=== PATIENT | female | born 1970 | race African-American/Black ===

== ENCOUNTER 2016-08-11 08:12 | Emergency (ER) | payer OTHER ==
[~2016-08-11] VITALS: Ht 154.9 cm; Wt 81.8 kg
[~2016-08-11 08:12] MED LIST: PERCOCET 5/31 TABLET PO
[2016-08-11] MEDS ORDERED: FLEXERIL10 MG PO (08:55)
[2016-08-11] MEDS ORDERED: MEDROL DOSEPAK4 MG PO (08:55)
[2016-08-11 09:19] VITALS: BP 131/76
== END 2016-08-11 09:20 | disposition home or self-care (01) ==
LOC: EME 08:12
DX: M54.16 Radiculopathy, lumbar region (principal); M79.604 Pain in right leg; G89.29 Other chronic pain; E03.9 Hypothyroidism, unspecified; F17.200 Nicotine dependence, unspecified, uncomplicated
CPT/HCPCS: 99281; 99283

== ENCOUNTER 2016-11-16 10:26 | Emergency (ER) | payer OTHER ==
[~2016-11-16] VITALS: Ht 160 cm; Wt 92.5 kg
[~2016-11-16 10:26] MED LIST changes: +FLEXERIL10 MG PO; +MEDROL DOSEPAK4 MG PO
[2016-11-16] MEDS ORDERED: ZITHROMAX500 MG PO (12:30)
[2016-11-16] MEDS ORDERED: PREDNISONE20 MG PO (12:30)
[2016-11-16 12:46] VITALS: BP 145/68
== END 2016-11-16 12:47 | disposition home or self-care (01) ==
LOC: EME 10:26
DX: J20.9 Acute bronchitis, unspecified (principal); F17.200 Nicotine dependence, unspecified, uncomplicated
CPT/HCPCS: 71020; 94640; 99281; 99284; J7512

== ENCOUNTER 2017-10-17 19:57 | Emergency (ER) | payer OTHER ==
[~2017-10-17] VITALS: Ht 154.9 cm; Wt 89.3 kg
[~2017-10-17 19:57] MED LIST changes: +PREDNISONE20 MG PO; +ZITHROMAX500 MG PO
[2017-10-17 21:24] LABS: HEMATOCRIT 41.5 % (36.0-46.0); MCH 28.1 PG (29.0-34.0); MCHC 33.7 G/DL (30.0-36.0); MCV 83.3 FL (83-99); RBC DIS.WIDTH-CV 13.9 % (11.8-14.6); RBC DIS.WIDTH-SD 42.7 % (39-53); RED BLOOD COUNT 4.98 M/uL (3.80-5.20); WHITE BLOOD COUNT 12.5 K/uL (4.1-10.2)
[2017-10-17 21:33] LABS: CHLORIDE 106 mEq/L (99-109); POTASSIUM 3.6 mEq/L (3.7-5.4); SODIUM 140 mEq/L (136-147)
[2017-10-17 21:35] LABS: GLUCOSE 86 mg/dL (70-99)
[2017-10-17 21:39] LABS: GFR ESTIMATE (CALCULATED) > 59 mL/min/
[2017-10-17 21:40] LABS: UREA NITROGEN (BUN) 11 mg/dL (9-23)
[2017-10-17] MEDS ORDERED: TESSALON PERLE100 MG PO (21:58)
[2017-10-17] MEDS ORDERED: PREDNISONE10 M1 PO (21:58)
[2017-10-17] MEDS ORDERED: ZITHROMAX Z-PA250 MG PO (21:58)
[2017-10-17 22:05] LABS: PLAT.SUFFICIENCY ADEQUATE; PLATELET COUNT 364 K/uL (156-360)
[2017-10-17 22:18] VITALS: BP 160/98
== END 2017-10-17 22:19 | disposition home or self-care (01) ==
LOC: EME 19:57
PROVIDERS: Physician Assistant
DX: J06.9 Acute upper respiratory infection, unspecified (principal); I10 Essential (primary) hypertension; G89.29 Other chronic pain; M54.9 Dorsalgia, unspecified; F32.9 Major depressive disorder, single episode, unspecified; F31.9 Bipolar disorder, unspecified; F17.200 Nicotine dependence, unspecified, uncomplicated; Z91.018 Allergy to other foods
CPT/HCPCS: 71046; 80048; 85027; 99281; 99284

== ENCOUNTER 2017-11-08 17:58 | Emergency (ER) | payer OTHER ==
[~2017-11-08] VITALS: Ht 160 cm; Wt 89.6 kg
[~2017-11-08 17:58] MED LIST changes: +PREDNISONE10 M1 PO; +TESSALON PERLE100 MG PO; +ZITHROMAX Z-PA250 MG PO
[2017-11-08 18:51] LABS: APPEARANCE CLEAR ((CLEAR)); BILIRUBIN NEGATIVE; BLOOD MODERATE; COLOR AMBER ((YELLOW)); GLUCOSE (STRIP) NEGATIVE; KETONES NEGATIVE; LEUKOCYTES NEGATIVE; NITRITE NEGATIVE; PROTEIN (STRIP) NEGATIVE; SPECIFIC GRAVITY 1.018 (1.000-1.030)
[2017-11-08 18:54] LABS: BACTERIA RARE /HPF; EPITHELIAL CELLS 1+ /HPF; MUCUS 2+ /LPF; UCUL ADDED? NO; WHITE BLOOD CELLS 0-5 /HPF (0-5)
[2017-11-08 19:35] LABS: HEMATOCRIT 40.4 % (36.0-46.0); HEMOGLOBIN 13.6 G/DL (11.9-15.5); MCHC 33.7 G/DL (30.0-36.0); MCV 83.3 FL (83-99); PLATELET COUNT 345 K/uL (156-360); RBC DIS.WIDTH-CV 13.9 % (11.8-14.6); RBC DIS.WIDTH-SD 42.5 % (39-53); RED BLOOD COUNT 4.85 M/uL (3.80-5.20); WHITE BLOOD COUNT 11.3 K/uL (4.1-10.2)
[2017-11-08 19:46] LABS: ALBUMIN 4.1 g/dL (3.2-4.8); CHLORIDE 107 mEq/L (99-109); POTASSIUM 3.8 mEq/L (3.7-5.4); SODIUM 141 mEq/L (136-147)
[2017-11-08 19:48] LABS: GLUCOSE 71 mg/dL (70-99); TOTAL PROTEIN 7.1 g/dL (6.4-8.3)
[2017-11-08 19:50] LABS: TOTAL BILIRUBIN 0.5 mg/dL (0.0-1.0)
[2017-11-08 19:52] LABS: ALKALINE PHOSPHATASE 91 IU/L (3-129); CREATININE 0.9 mg/dL (0.6-1.3); GFR ESTIMATE (CALCULATED) > 59 mL/min/
[2017-11-08 19:53] LABS: UREA NITROGEN (BUN) 9 mg/dL (9-23)
[2017-11-08 19:54] LABS: AST (GOT) 15 IU/L (2-34)
[2017-11-08 19:55] LABS: ALT (GPT) 12 IU/L (3-49); LIPASE 24 U/L (1.0-51.0)
[2017-11-08 20:01] LABS: QUANTITATIVE HCG < 4.0 MIU/ML
[2017-11-08] MEDS ORDERED: IBU800 MG PO (23:15)
[2017-11-08 23:22] VITALS: BP 132/65
== END 2017-11-08 23:23 | disposition home or self-care (01) ==
LOC: EME 17:58
PROVIDERS: Physician Assistant
DX: D25.9 Leiomyoma of uterus, unspecified (principal); R31.9 Hematuria, unspecified; F31.9 Bipolar disorder, unspecified; F32.9 Major depressive disorder, single episode, unspecified; F17.200 Nicotine dependence, unspecified, uncomplicated; Z87.442 Personal history of urinary calculi
CPT/HCPCS: 74176; 76856; 80053; 81003; 83690; 84702; 85027; 99281; 99284; J1885; J2405; J3010; J7030

== ENCOUNTER 2017-11-21 22:00 | Emergency (ER) | payer OTHER ==
[~2017-11-21] VITALS: Ht 157.5 cm; Wt 89.4 kg
[~2017-11-21 22:00] MED LIST changes: +IBU800 MG PO
[2017-11-21 22:55] LABS: HEMATOCRIT 36.5 % (36.0-46.0); HEMOGLOBIN 12.5 G/DL (11.9-15.5); MCH 28.5 PG (29.0-34.0); MCHC 34.2 G/DL (30.0-36.0); MCV 83.1 FL (83-99); PLATELET COUNT 304 K/uL (156-360); RBC DIS.WIDTH-CV 13.8 % (11.8-14.6); RBC DIS.WIDTH-SD 42.5 % (39-53); RED BLOOD COUNT 4.39 M/uL (3.80-5.20); WHITE BLOOD COUNT 9.5 K/uL (4.1-10.2)
[2017-11-21 23:06] LABS: CHLORIDE 109 mEq/L (99-109); POTASSIUM 3.3 mEq/L (3.7-5.4); SODIUM 143 mEq/L (136-147)
[2017-11-21 23:07] LABS: MAGNESIUM 2.1 mg/dL (1.3-2.7)
[2017-11-21 23:08] LABS: GLUCOSE 75 mg/dL (70-99)
[2017-11-21 23:12] LABS: GFR ESTIMATE (CALCULATED) > 59 mL/min/
[2017-11-21 23:13] LABS: UREA NITROGEN (BUN) 8 mg/dL (9-23)
[2017-11-21 23:18] LABS: TROP-I INTERPRETATION NEGATIVE; TROPONIN-I < 0.01 ng/mL (0.0-0.30)
[2017-11-22] MEDS ORDERED: ATARAX,VISTARIL50 MG PO (00:05)
[2017-11-22] MEDS ORDERED: ZANTAC150 MG PO (00:05)
[2017-11-22 00:23] VITALS: BP 134/81
== END 2017-11-22 00:23 | disposition left against medical advice (07) ==
LOC: EME 22:00
PROVIDERS: Physician Assistant
DX: L29.9 Pruritus, unspecified (principal); R07.9 Chest pain, unspecified; Z53.20 Procedure and treatment not carried out because of patient's decision for unspecified reasons; F17.200 Nicotine dependence, unspecified, uncomplicated; Z71.6 Tobacco abuse counseling
CPT/HCPCS: 71046; 80048; 83735; 84484; 85027; 93005; 99281; 99283; J3410; Q0177

== ENCOUNTER 2018-02-15 11:28 | Emergency (ER) | payer OTHER ==
[~2018-02-15] VITALS: Ht 157.5 cm; Wt 87.9 kg
[~2018-02-15 11:28] MED LIST changes: +ATARAX,VISTARIL50 MG PO; +ZANTAC150 MG PO
[2018-02-15] MEDS ORDERED: LIDODERM 5% P1 PATCH TD (13:29)
[2018-02-15] MEDS ORDERED: ULTRAM50 MG PO (13:29)
[2018-02-15] MEDS ORDERED: VALIUM5 MG PO (13:29)
[2018-02-15 13:48] VITALS: BP 146/80
== END 2018-02-15 13:50 | disposition home or self-care (01) ==
LOC: EME 11:28 → RME 11:28
DX: S16.1XXA Strain of muscle, fascia and tendon at neck level, initial encounter (principal); S40.012A Contusion of left shoulder, initial encounter; M62.838 Other muscle spasm; W01.0XXA Fall on same level from slipping, tripping and stumbling without subsequent striking against object, initial encounter; Y92.000 Kitchen of unspecified non-institutional (private) residence as the place of occurrence of the external cause; F17.200 Nicotine dependence, unspecified, uncomplicated
CPT/HCPCS: 73030; 73060; 99281; 99284; J1885